=== PATIENT | male | born 1980 | race Caucasian/White ===

== ENCOUNTER 2019-04-22 06:10 | Day surgery (SDC) | payer OTHER ==
[~2019-04-22] VITALS: Ht 175.3 cm; Wt 109.2 kg
[~2019-04-22 06:10] MED LIST: OMEP-28 PO
[2019-04-22 07:24] VITALS: Ht 175.3 cm; Wt 109.2 kg
[2019-04-22] MEDS ORDERED: PROPOFOL 40 ML ONE (07:28)
[2019-04-22 07:29] VITALS: BP 123/80; PULSE 63; RESP 17
[2019-04-22] MEDS ORDERED: PROPOFOL 20 ML ONE ×2 (08:39→08:40)
[2019-04-22 09:07] VITALS: BP 111/71; PULSE 61; RESP 17
== END 2019-04-22 14:24 | disposition home or self-care (01) ==
LOC: GIL 06:10
PROVIDERS: ATTEND Internal Medicine Gastroenterology
DX: K64.8 Other hemorrhoids (principal); K21.9 Gastro-esophageal reflux disease without esophagitis; E78.5 Hyperlipidemia, unspecified; F17.200 Nicotine dependence, unspecified, uncomplicated; E66.9 Obesity, unspecified; Z68.35 Body mass index [BMI] 35.0-35.9, adult
CPT/HCPCS: 43239; 45378; 88305; 88312; Z7610